=== PATIENT | female | born 1940 | race Caucasian/White ===

== ENCOUNTER 2024-08-29 12:18 | Outpatient (OUT) | payer MEDICARE, SELFPAY ==
--- OUTSIDE RECORDS SUMMARY | 2024-08-29 12:32 | XMS_ITS | Encounter Summary ---
Author Organization [facility] Address [id number] [address] [place] [address] Care Team Providers Care Recorder Gravity Prospecting Name Role Phone TheresaCaity jimenez Moy CROOK Primary Care Provider [phone] Encounter Details Date Type Department Care Team (Late st Contact Info) Description 02/02/2023 Documentation [facility] [address] [place] [phone] Hannah Vargas PA [address] [place] [address] Social History Tobacco Use Types Packs/Day Years Used Date Smoking Tobacco: Former Cigarettes Q uit: 10/31/2022 Smokeless Tobacco: Never Alcohol Use Standard Drinks/Week Comments Yes 0 (1 standard drink = 0.6 oz pur e alcohol) socially AUDIT-C Answer Date Recorded Q1: How often do you have a drink containing alc ohol? 2-4 times a month 12/19/2022 Q2: How many drinks containi ng alcohol do you have on a typical day when you are drinking? 1 or 2 12/19/2022 Q3: How often do you have si x or more drinks on one occasion? Never 12/19/2022 PHQ-2 Answer Date Recorded Total Score 0 12/19/2022 Comments Unknown Sex and Gender Information Value Date Recorded Sex Assigned at Not on file Legal Sex Female 3:22 PM EDT Gender Identity Not on file Sexual Orientation Not on file documented as of this encounter Plan of Treatment Not on file documented as of this encounter Visit Diagnoses Not on filedocumented in this encounter Additional Health Concerns Assessment Noted Time PHQ-9 Depression Total Score: 0 12/20/19 11:40 AM EDT documented as of this encounter Care Teams Recorder Gravity Prospecting Relationship Specialty Start Date End Date Caity Cardenas DO PCP - General Family Medicine 12/18/22 documented as of this encounter
--- OUTSIDE RECORDS SUMMARY | 2024-08-29 12:32 | XMS_ITS | Clinical Summary ---
Author Organization [facility] Address [address] [place] [address] Care Team Providers Care Air Conditioning Coil Assembler Name Role Phone Sherlyn London DO Unavailable [phone] Caity Cardenas MD Primary Care Provider [phone] Allergies No known active allergies Medications atorvastatin (Lipitor) 10 MG tablet 08/17/19 23 Active denosumab (Prolia) 60 MG/ML solution prefilled syringe Inject 60 mg under the skin 1 (one) time Active Multiple Vitamins-Webster als (PRESERVISION AREDS 2 PO) Active cholecalcifero l (Vitamin D-3) 50 MCG (1999 UT) capsule Active cyanocobalamin (Vitamin B-12) 50 MCG tablet Take 50 mcg by mouth in the morning. Active acetaminophen (Tylenol) 325 MG tablet Take 650 mg by mouth every 4 (four) hours if needed 12/26/19 23 Active gabapentin (Neurontin) 100 MG capsule 07/05/19 24 Active losartan (Cozaar) 25 MG tablet Take 25 mg by mouth 02/20/20 24 Active ipratropium (Atrovent) 0.06 % nasal spray Administer into affected nostril(s) 11/08/19 24 Active ASPIRIN 81 PO Active donepezil (Aricept) 5 MG tabletIndicati ons:Mild cognitive impairment TAKE 1 TABLET(5 MG) BY MOUTH AT BEDTIME 90 tablet 08/12/19 25 Active Calcium Carb-Cholecalc iferol (CALCIUM PLUS VITAMIN D3 PO) Take by mouth A ctive escitalopram (Lexapro) 20 MG tabletIndicati ons:Depression , unspecified depression type (CMS/HCC),Anxi ety Take 1 tablet (20 mg) by mouth Daily 90 tablet 1 08/21/19 25 Active donepezil (Aricept) 5 MG tabletIndicati ons:Mild cognitive impairment Take 1 tablet (5 mg) by mouth at bedtime 90 tablet 03/13/20 24 025 Discontinued sertraline (Zoloft) 50 MG tabletIndicati ons:Depression , unspecified depression type (CMS/HCC) Take 1 tablet (50 mg) by mouth Daily Take this for 7 days (in addition to the lexapro) 7 tablet 07/09/19 25 025 Discontinued( erapy completed) escitalopram (Lexapro) 10 MG tabletIndicati ons:Depression , unspecified depression type (CMS/HCC) Take 1 tablet (10 mg) by mouth Daily 7 tablet 07/09/19 25 025 Discontinued( erapy completed) escitalopram (Lexapro) 20 MG tabletIndicati ons:Depression , unspecified depression type (CMS/HCC) Take 1 tablet (20 mg) by mouth Daily (To start after completing the 10mg) 30 tablet 2 07/09/19 25 025 Discontinued(Re order) Active Problems Problem Noted Date Diagnosed Date 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 07/30 Post-traumatic osteoarthritis, left wrist 2024 Pulmonary nodule 07/30/2024 Mild cognitive impairment with memory loss 05/10 Chronic pain syndrome 05/10/2023 Anxiety, generalized 05/10/2023 Memory change 05/01/2023 Depression 05/01/2023 Aortic valve endocarditis 03/19/2023 Aortic valve mass 02/13/2023 Right homonymous hemianopsia 12/27/2022 Stroke 12/19/2022 Localized primary osteoarthritis of left wrist 0 11/02/2022 Left carpal tunnel syndrome 11/01/2022 Early dry stage nonexudative age-related macular degeneration of both eyes 10/30/2022 Glaucoma suspect of both eyes 10/30/2022 Dry eyes 10/30/2022 Blepharitis of upper and lower eyelids of both e yes 10/30/2022 Paresthesia and pain of extremity 10/25/2022 Acquired hallux valgus 03/01/2009 Encounters Date Type Department Care Team Description 08/20/2024 1:00 PM EDT Office Visit [facility] [address] [place] [address] Alesha Almazan PA Cerebrovascular accident (CVA) due to other mechanism (Primary Dx); Mild cognitive impairment with memory loss; Depression, unspecified depression type (CMS/HCC); Anxiety 08/20/2024 Telephone [facility] [address] [place] [address] Dafne Gibbons MA Schedule Appt 08/20/2024 Bamboo flowsheet [facility] [address] [place] [address] Alesha Almazan PA 08/11/2024 Refill [facility] [address] [facility] [address] [place] [address] Alesha Almazan PA Mild cognitive impairment 08/01/2024 8:40 AM EDT Office Visit [facility] [address] [place] [address] Liz Owens MD Vasomotor rhinitis (Primary Dx); Left ear impacted cerumen 08/01/2024 Bamboo flowsheet [facility] [address] [place] [address] Liz Owens MD 08/01/2024 Travel 07/11/2024 8:45 AM EDT Office Visit [facility] [address] [place] [phone] Edwardo Cueto, Localized primary osteoarthritis of left wrist (Primary Dx) 07/11/2024 Bamboo flowsheet [facility] [address] [facility] [facility] [address] [place] [phone] Edwardo Cueto, 07/11/2024 Travel 07/08/2024 11:20 AM EDT Office Visit [facility] [address] [place] [phone] Alesha Almazan PA Mild cognitive impairment with memory loss (Primary Dx); Cerebrovascular accident (CVA) due to other mechanism; Depression, unspecified depression type (CMS/HCC) 07/08/2024 Bamboo flowsheet [facility] [address] [address] Alesha Almazan PA 07/04/2024 Travel 06/03/2024 2:00 PM EST Office Visit [facility] [address] [place] [phone] Prince Maciel, PhD Mild neurocognitive disorder (Primary Dx); Cerebrovascular accident (CVA) due to other mechanism (CMS/HCC) ; Bilateral sciatica; Other insomnia; Major depressive disorder, recurrent, mild (HCC) (CMS/HCC) ; Mild anxiety 06/03/2024 ExactCostboo flowsheet [facility] [address] [address] Prince Maciel, PhD from Last 3 Months Immunizations Immunization Administration Dates Next Due ABRYSVO - Respiratory syncyt ial virus (RSV), vaccine, bivalent, protein subunit RSV prefusion F, diluent reconstituted, 0.5 mL, PF 03/20/2024 Influenza, High Dose Seasona l, Preservative Free 01/11/2024,01/04/2021,12/29/2019,01/27 Influenza, High-dose Seasona l, Quadrivalent, Preservative Free 01/04/2023,01/23/2022 Pneumococcal Conjugate PCV 13 10/19/2017 Pneumococcal Polysaccharide PPSV23 01/04/2021 Zoster, live 11/04/2012 Family History Medical History Relation Name Comments Multiple sclerosis Daughter 3 Hearing deficiency Father Alzheimer's disease Mother Ellie Osteoporosis Mother Ellie Stroke Mother Ellie Rectal cancer Sister 4 Relation Name Status Comments Brother 4 Daughter 3 Alive Father Mother Ellie Sister 4 Social History Tobacco Use Types Packs/Day Years Used Date Smoking Tobacco: Every Day Cigarettes Smokeless Tobacco: Never Alcohol Use Standard Drinks/Week Comments Not Currently 1 (1 standard drink = 0.6 oz pur e alcohol) Comments Unknown Sex and Gender Information Value Date Recorded Sex Assigned at Female 10/01/2022 6:58 AM EDT Legal Sex Female 8:35 PM EDT Gender Identity Female 10/01/2022 6:58 AM EDT Sexual Orientation Choose not to disclose 2022 6:58 AM EDT Last Filed Vital Signs Vital Sign Reading Time Taken Comments Blood Pressure 102/74 08/20/2024 12:57 PM EDT Pulse 66 08/20/2024 12:57 PM EDT Temperature 36.3 C (97.4 F) 05/10/2023 10:08 AM EST Respiratory Rate 16 08/20/2024 12:57 PM EDT Oxygen Saturation 99% 08/20/2024 12:57 PM EDT Inhaled Oxygen Concentration - - Weight 54.4 kg (120 lb) 08/20/2024 12:57 PM EDT Height 157.5 cm (5' 2 ) 08/20/2024 12:57 PM EDT Body Mass Index 21.95 08/20/2024 12:57 PM EDT Plan of Treatment Upcoming Encounters Date Type Department Care Team (Late st Contact Info) Description 09/03/2024 1:00 PM EDT Office Visit [facility] [address] [place] [address] Magda Cao DPM [address] [place] [address] 11/10/2024 9:30 AM EDT Office Visit [facility] [address] [place] [address] Brian Rajan MD [address] [facility] [address] [place] [address] 11/19/2024 9:15 AM EDT Office Visit [facility] [address] [place] [address] Jack Correa DO [address] [place] [address] Health Maintenance Due Date Last Done Comments Pneumococcal Vaccine: 65+ Years Completed , 10/19/2017 Influenza Vaccine Completed 01/11/2024, , 01/23/2022, Additional history exists Procedures Procedure Name Priority Date/Time Associated Diagnosis Comments NEUROPSYCHOLOGICAL TESTING Routine 07/29/2024 9:04 AM EDT Mild neurocognitive disorder ME ARTHROCENTESIS ASPIR&/INJ INTERM JT/BURS W/US Routine 07/11/2024 8:37 AM EDT Localized primary osteoarthritis of left wrist from Last 3 Months Results * Neuropsychological testing (07/29/2024 9:04 AM EDT) Kendrick Blevins DO - 07/29/2024 9:[address] Wheeler report. us Tiffanie VELEZ NEUROLOGY ORDERABLES Final Resul t * ME ARTHROCENTESIS ASPIR&/INJ INTERM JT/BURS W/US (07/11/2024 8:37 AM EDT) Narrative Alma Rosa Cao MA - 07/11/2024 8:37 AM EDT Alma Rosa Cao MA 07/14/2024 9:46 AM M Inj/Asp: L radiocarpal on 07/11/2024 8:37 AM Indications: diagnostic evaluation Details: 25 G needle, ultrasound-guided Medications: 6 mg betamethasone acetate-betamethasone sodium phosphate 6 (3-3) MG/ML Outcome: tolerated well, no immediate complications Consent was given by the patient. us Edwardo Cueto DO IN CLINIC/BEDSIDE ORDERABLES Final Result from Last 3 Months Insurance [employer] MEDICARE Care Teams Air Conditioning Coil Assembler Relationship Specialty Start Date End Date Caity Cardenas MD [address] [place] [address] PCP - General Family Medicine 08/28/24 Sherlyn London DO [address] [place] [address] Referring Physician Neurology 07/12/23
--- OUTSIDE RECORDS SUMMARY | 2024-08-29 12:32 | XMS_ITS | Encounter Summary ---
Author Organization [facility] Address [address] [facility] [place] [address] Care Team Providers Care Flight Dynamicist Name Role Phone Caity Cardenas MD Primary Care Provider Sherlyn London DO Unavailable [phone] Encounter Details Date Type Department Care Team (Late st Contact Info) Description 08/20/2024 BamBaila Gameso flowsheet [facility] [address] [place] [phone] Alesha Almazan PA [address] [place] [address] Social History Tobacco Use Types Packs/Day Years [...] not to disclose 2022 6:58 AM EDT documented as of this encounter Plan of Treatment Upcoming Encounters Date Type Department Care Team (Late st Contact Info) Description 09/03/2024 1:00 PM EDT Office Visit [facility] [address] [place] [phone] Magda Cao, DPM [address] [place] [address] 11/10/2024 9:30 AM EDT Office Visit [facility] [address] [place] [address] Brian Rajan MD [address] [facility] [address] [place] [id number] 11/19/2024 9:15 AM EDT Office Visit [facility] [address] [place] [address] Jack Correa DO [address] [place] [address] documented as of this encounter Visit Diagnoses Not on filedocumented in this encounter Care Teams Flight Dynamicist Relationship Specialty Start Date End Date Caity Cardenas MD PCP - General Family Medicine 10/06/22 08/27/24 Sherlyn London DO [address] [place] [phone] Referring Physician Neurology 07/12/23 documented as of this encounter
--- OUTSIDE RECORDS SUMMARY | 2024-08-29 12:32 | XMS_ITS | Encounter Summary ---
Author Organization [facility] Address [address] [facility] [place] [address] Care Team Providers Care Director Of Product Management Name Role Phone Caity Cardenas MD Primary Care Provider [phone] Sherlyn London DO Unavailable [phone] Reason for Visit * Reason Onset Date Comments Schedule Appt 08/20/2024 Encounter Details Date Type Department Care Team (Late st Contact Info) Description 08/20/2024 Telephone [facility] [address] [facility] [address] [place] [phone] Dafne Gibbons MA Schedule Appt Social History Tobacco Use Types Packs/Day Years [...] AM EDT documented as of this encounter Miscellaneous Notes * Telephone Encounter - Diane Boucher - 08/21/2024 11:14 AM EDT Done: Scheduled 09/03 at 1PM. In pain. * Telephone Encounter - Dafne Gibbons MA - 08/21/2024 9:49 AM EDT Patient called and LVM returning Diane's call to schedule an appointment. Please return call to patient to schedule an appointment. Thank you very much! * Telephone Encounter - Diane Boucher - 08/20/2024 1:58 PM EDT Called PT and LM to call us to make appt with Dr Cao. * Telephone Encounter - Dafne Gibbons MA - 08/20/2024 1:14 PM EDT Patient called regarding pain in the left foot. She stated that she is having pain on the bottom ofthe left 4th toe and she thinks that it might be a neuroma. She would like to make an appointment with Dr. Cao. Please call patient to schedule an appointment with Dr. Cao, thank you. documented in this encounter Plan of Treatment Upcoming Encounters Date Type Department Care Team (Late st Contact Info) Description 09/03/2024 1:00 PM EDT Office Visit [facility] [address] [place] [address] Magda Cao DPM [address] [place] [address] 11/10/2024 9:30 AM EDT Office Visit [facility] [address] [place] [address] Brian Rajan MD [address] [facility] [address] [place] [address] 11/19/2024 9:15 AM EDT Office Visit [facility] [address] [place] [address] Jack Correa DO [address] [place] [address] documented as of this encounter Visit Diagnoses Not on filedocumented in this encounter Care Teams Director Of Product Management Relationship Specialty Start Date End Date Caity Cardenas MD PCP - General Family Medicine 10/06/22 08/27/24 Sherlyn London DO [address] [place] [address] Referring Physician Neurology 07/12/23 documented as of this encounter
--- OUTSIDE RECORDS SUMMARY | 2024-08-29 12:32 | XMS_ITS | Encounter Summary ---
Author Organization [facility] Address [id number] [address] [place] [address] Care Team Providers Care Top Lift And Automatic Window Repairer Name Role Phone Caity Cardenas DO Primary Care Provider [phone] Encounter Details Date Type Department Care Team (Late st Contact Info) Description 12/22/2022 Telephone [facility] [address] [address] Niki Cruz, PRINCIPAL STATISTICAL SCIENTIST-ACCREDITED PHARMACY TECHNICIAN [address] [address] Social History Tobacco Use Types Packs/Day Years Used Date Smoking Tobacco: Some Days Cigarettes Smokeless Tobacco: Never Alcohol Use Standard [...] on file documented as of this encounter Miscellaneous Notes * Telephone Encounter - KHOA Dexter - 12/22/2022 8:[address] chest in 3 months then follow up in [place]. May choose to follow up in [place] instead.ThankS! * Telephone Encounter - Nubia Humphrey RN - 12/22/2022 8:50 AM EDT LM for pt to call office re HDFU * Telephone Encounter - Nubia Humphrey RN - 12/22/2022 8:50 AM EDT Spoke with pt - states she would prefer to follow up in [place]. Pt has appt with PCP next week, will discuss then documented in this encounter Plan of Treatment Not on file documented as of this encounter Visit Diagnoses Not on filedocumented in this encounter Additional Health Concerns Assessment Noted Time PHQ-9 Depression Total Score: 0 12/20/19 23 11:40 AM EDT documented as of this encounter Care Teams Top Lift And Automatic Window Repairer Relationship Specialty Start Date End Date Caity Cardenas DO PCP - General Family Medicine 12/18/22 documented as of this encounter
--- OUTSIDE RECORDS SUMMARY | 2024-08-29 12:32 | XMS_ITS | Clinical Summary ---
Author Organization [facility] Address [address] [place] [address] Care Team Providers Care Inventory Control Coordinator Name Role Phone Keaton Almanza MD Primary Care Provider Allergies No known active allergies Medications calcium carbonate/vitami n d3(CALCIUM 600 + D(3) 600 MG-400 UNIT TAB) 2 daily 0 03/01/2009 Ac tive CHOLECALCIFEROL (VITAMIN D3) 1,000 UNIT TAB one daily 0 03/01/2009 Acti ve MULTIVITAMIN TAB Take one(1) tablet daily. 0 03/01/2009 Active omega-3 fatty acids/vitamin e(FISH OIL 1,000 MG CAP) one daily 0 03/01/2009 Active Active Problems Problem Noted Date Diagnosed Date Hallux valgus (acquired) 03/01/2009 Social History Tobacco Use Types Packs/Day Years Used Date Smoking Tobacco: Never Assessed Area Deprivation Index Answer Date [place]if[place] rded National Score (1-100), lower number is lower ri sk Not on file 03/09/2020 State Score (1-10), lower number is lower risk N ot on file 03/09/2020 Data from: https://www.neighborhoodatlas.medicine.[facility].edu/. Last address used for calculation Not on file 03/09/2020 Comments Unknown Sex and Gender Information Value Date Recorded Sex Assigned at Not on file Legal Sex Female 9:11 AM EST Gender Identity Not on file Sexual Orientation Not on file Plan of Treatment Health Maintenance Due Date Last Done Comments Anxiety Screening 01/01/1960 Depression Screening 01/01/1960 DTaP,Tdap,Td Vaccine (1 - Tdap) 1960 Diabetes Screening 1986 Pneumococcal Vaccine: 50+ (1 of 1 - PCV) 01/01/1992 Shingrix Vaccine (1 of 2) 01/01/1992 Bone Density Screening 2006 RSV Vaccine (1 - 1-dose 75+ series) 2016 Covid-19 Vaccine (1 - season) 2023 Advance Directive Discussion 04/02/2024 Influenza Vaccine (Season Ended) 2024 Insurance MEDICARE Member Subscriber Plan / Payer (Ef fective 2007-Present) Name:Adriana Ly A Member ID:[id number] Relation to Subscriber:Self Name:AdrianaLy Subscriber ID:[id number] Payer ID:Not on file Group ID:Not on file Type:Medicare Address: [place] [id number] [address] Care Teams Inventory Control Coordinator Relationship Specialty Start Date End Date Keaton Almanza MD [address] [place] [address] PCP - General 02/15/09
--- OUTSIDE RECORDS SUMMARY | 2024-08-29 12:32 | XMS_ITS | Encounter Summary ---
Author Organization [facility] Address [id number] [address] [place] [address] Care Team Providers Care Medical Staffing Coordinator Name Role Phone Caity Cardenas DO Primary Care Provider [phone] Encounter Details Date Type Department Care Team (Late st Contact Info) Description 04/12/2023 Orders Only [facility] [place] [facility] [place] [address] [place] [address] Ref Prov, [place] [address] Social History Tobacco Use Types Packs/Day Years Used Date Smoking Tobacco: Former Cigarettes Q uit: 10/31/2022 Smokeless Tobacco: Never Alcohol Use Standard Drinks/Week Comments Yes 0 (1 standard drink = 0.6 oz pur e alcohol) socially AUDIT-C Answer Date Recorded Q1: How often do you have a drink containing alc ohol? 2-4 times a month 03/19/2023 Q2: How many drinks containi ng alcohol do you have on a typical day when you are drinking? 1 or 2 03/19/2023 Q3: How often do you have si x or more drinks on one occasion? Never 03/19/2023 PHQ-2 Answer Date Recorded Total Score 0 03/19/2023 Housing Instability Answer Date Recorde d Are you worried or concerned that in the next two months you may not have stable housing that you own, rent or stay in as a part of a household? No 03/25/2023 Hunger Screening Answer Date Recorded Within the past 12 months we worried whether our food would run out before we got money to buy more. Never True 03/25/2023 Within the past 12 months th e food we bought just didn't last and we didn't have money to get more. Never True 03/25/2023 Comments No Sex and Gender Information Value Date Recorded Sex Assigned at Not on file Legal Sex Female 3:22 PM EDT Gender Identity Not on file Sexual Orientation Not on file documented as of this encounter Plan of Treatment Not on file documented as of this encounter Goals Goal Patient Goal Type Associated Problems Recent Progress Patient-Stated? Author <enter goal here> General Yes Sherlyn Carlson LSW Note: Evaluation of progress towards goal: plan home with homecare and significant other support documented as of this encounter Procedures Procedure Name Priority Date/Time Associated Diagnosis Comments XR CHEST 2 VWS Routine 04/12/2023 8:11 AM EST documented in this encounter Results * X-ray chest 2 views (04/12/2023 8:11 AM EST) Anatomical Region Laterality Modality Body, Chest N/A Computed Radiogr aphy us Not In System Ref Prov IMG DIAGNOSTIC IMAGING OR DERABLES Final Result documented in this encounter Visit Diagnoses Not on filedocumented in this encounter Additional Health Concerns Assessment Noted Time PHQ-9 Depression Total Score: 0 03/19/20 7:54 PM EST documented as of this encounter Care Teams Medical Staffing Coordinator Relationship Specialty Start Date End Date Caity Cardenas DO PCP - General Family Medicine 12/18/22 documented as of this encounter
--- OUTSIDE RECORDS SUMMARY | 2024-08-29 12:32 | XMS_ITS | Clinical Summary ---
Author Organization [facility] Address [address] [place] [address] Phone Care Team Providers Care Baker Pastry Name Role Phone Caity Cardenas DO Primary Care Provider [phone] Social History Tobacco Use Types Packs/Day Years Used Date Smoking Tobacco: Never Assessed Comments Unknown Sex and Gender Information Value Date Recorded Sex Assigned at Not on file Legal Sex Female 11:37 AM EST Gender Identity Not on file Sexual Orientation Not on file Last Filed Vital Signs Vital Sign Reading Time Taken Comments Blood Pressure - - Pulse - - Temperature - - Respiratory Rate - - Oxygen Saturation - - Inhaled Oxygen Concentration - - Weight 49.9 kg (110 lb) 08/03/2021 3:57 PM EDT Height 157.5 cm (5' 2 ) 08/03/2021 3:57 PM EDT Body Mass Index 20.12 08/03/2021 3:57 PM EDT Plan of Treatment Health Maintenance Due Date Last Done Comments Bone Density Scan 1940 Lipid Panel 1940 Yearly Adult Physical 1940 DTaP/Tdap/Td Vaccines (1 - Tdap) 01/01/1964 Pneumococcal Vaccine (1 of 1 - PCV) 01/01/1992 Zoster Vaccines (1 of 2) 01/01/1992 RSV High Risk: (Elderly (60+ ) or Population) (1 - 1-dose 75+ series) 2016 COVID-19 Vaccine ( - 2023-2 5 season) 2023 Influenza Vaccine (Season Ended) 2024 HIB Vaccines Aged Out No longer eligi ble based on patient's age to complete this topic HPV Vaccines Aged Out No longer eligi ble based on patient's age to complete this topic Hepatitis A Vaccines Aged Out No long er eligible based on patient's age to complete this topic Hepatitis B Vaccines Aged Out No long er eligible based on patient's age to complete this topic IPV Vaccines Aged Out No longer eligi ble based on patient's age to complete this topic Meningococcal Vaccine Aged Out No oleg miladis eligible based on patient's age to complete this topic Rotavirus Vaccines Aged Out No longer eligible based on patient's age to complete this topic Care Teams Baker Pastry Relationship Specialty Start Date End Date Caity Cardenas DO [address] [place] [address] PCP - General 07/01/21
--- OUTSIDE RECORDS SUMMARY | 2024-08-29 12:32 | XMS_ITS | Encounter Summary ---
Author Organization [facility] [employer] Sys tem Address [facility]-[id number] [address] [place] [address] Care Team Providers Care Navigating Officer Name Role Phone TheresaCaity jimenez Moy CROOK Primary Care Provider [phone] Reason for Visit * Reason Onset Date Comments Care Navigation 02/02/2023 Encounter Details Date Type Department Care Team (Late st Contact Info) Description 02/02/2023 [facility] [address] [place] [address] Mary Maldonado, RN Care Navigation Social History Tobacco Use Types Packs/Day Years [...] encounter Miscellaneous Notes * Telephone Encounter - Mary Maldonado RN - 02/02/2023 2:37 PM EDT Contact Type: Direct contact - Phone call with patient - general Reason for Call: CN introduction. Assessment- 81 y.o. White or female with history of parathyroid disease, glaucoma, and occasional cigarette use who presented to [facility] on 12/17/22 with right visual field changes. She did receive thrombolytics and was admitted locally. [facility]. Due to this finding patient was transferred to [facility] ICU. Imaging was personally reviewed by our team- and patient does not have any subdural hematoma or intracranial hemorrhage. 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 Patient was able to be transferred out of ICU. Today patient reports that her vision is very well. She notes that she needs sunglasses more than before. She is driving fine. Her INR today was 2.4. She is now getting monthly draws. She is taking her coumadin. She is done with the lovenox. No excessive bruising or bleeding. She is outside working. She sees cardiac thoracic surgery a week from this Tu to discuss surgery. Neuro is on 03/08/2023. 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 Date of Hospitalization: 12/18/2022-12/25/2022. New Medications: Tylenol, Augmentin, ASA, singulair, coumadin, lovenox. Medication Issues: none. Anticoagulation: ASA and coumadin. Lovenox is done. Labs: monthly PT/INR now Testing: none. Equipment: none. Home Care: none Outpatient Therapy: OT-driving evaluation Driving: yes without problems Follow Up Appointments: neuro 03/08/2023. CT 02/03/2023 Plan/Goals: continue taking medications as ordered, keep follow up appts Intervention: CN called patient and received an update Questions: none documented in this encounter Plan of Treatment Not on file documented as of this encounter Visit Diagnoses Not on filedocumented in this encounter Additional Health Concerns Assessment Noted Time PHQ-9 Depression Total Score: 0 09/19/20 23 11:40 AM EDT documented as of this encounter Care Teams Navigating Officer Relationship Specialty Start Date End Date Caity Cardenas DO PCP - General Family Medicine 12/18/22 documented as of this encounter
--- OUTSIDE RECORDS SUMMARY | 2024-08-29 12:32 | XMS_ITS | Encounter Summary ---
Author Organization [facility] Address [facility]-[id number] [address] [place] [address] Care Team Providers Care Drum Sander Name Role Phone TheresaCaity jimenez Moy DO Primary Care Provider [phone] Encounter Details Date Type Department Care Team (Late st Contact Info) Description 12/17/2022 Orders Only [facility] [address] [place] [id number] Transcribe, Orders Support User Pain (Primary Dx) Social History Tobacco Use Types Packs/Day Years Used Date Smoking Tobacco: Never Assessed AUDIT-C Answer Date Recorded Q1: How often [...] on file documented as of this encounter Functional Status * Audit-C Score Answer Date of Assessment Author 2 12/19/2022 11:46 AM EDT Al Riso RN * Question Answer Date of Assessment Author Q1: How often do you have a drink containing alcohol? 2-4 times a month 12/19/2022 11:46 AM EDT Al Rios RN Q2: How many drinks containing alcohol do you have on a typical day when you are drinking? 1 or 2 12/19/2022 11:46 AM EDT Al Rios RN Q3: How often do you have six or more drinks on one occasion? Never 12/19/2022 11:46 AM EDT Al Rios RN * Question Answer Date of Assessment Author Functional Status Independent 12/19/2022 11:35 AM EDT Al Rios RN documented as of this encounter Mental Status * Question Answer Entry Date Author Overall Cognitive Status WFL 12/19/2022 11:01 AM EDT Shanta Mills PT * Question Answer Entry Date Author Overall Cognitive Status X 12/19/2022 8:39 AM EDT Keisha Olivarez, Student Speech Therapy documented in this encounter Plan of Treatment Not on file documented as of this encounter Results * CT angiogram carotid (12/17/2022 3:45 PM EDT) us Scanning Provider External IMG CT ORDERABLES Fin al Result MANUALLY TRANSCRIBED RESULTS * CT angiogram head (12/17/2022 3:40 PM EDT) us Scanning Provider External IMG CT ORDERABLES Fin al Result * CT brain without contrast (12/17/2022 2:50 PM EDT) us Scanning Provider External IMG CT ORDERABLES Fin al Result * X-ray chest 2 views (12/15/2022 12:15 PM EDT) us Scanning Provider External IMG DIAGNOSTIC IMAGIN G ORDERABLES Final Result documented in this encounter Visit Diagnoses Diagnosis Pain- Primary Generalized pain documented in this encounter Care Teams Drum Sander Relationship Specialty Start Date End Date Caity Cardenas DO PCP - General Family Medicine 12/18/22 documented as of this encounter
--- OUTSIDE RECORDS SUMMARY | 2024-08-29 12:32 | XMS_ITS | Encounter Summary ---
Author Organization [email or web address] Sys [facility] Address [facility]-[id number] [address] [place] [address] Care Team Providers Care Side Door Man Name Role Phone TheresaCaity jimenez Moy DO Primary Care Provider [phone] Encounter Details Date Type Department Care Team (Late st Contact Info) Description 12/18/2022 Orders Only [facility] [address] [place] [phone] Transcribe, Orders Support User Pain (Primary [...] Author 2 12/19/2022 11:46 AM EDT Al Rios [...] Status WFL 12/19/2022 11:01 AM EDT Shanta Mills, PT * Question Answer Entry Date Author Overall Cognitive Status X 12/19/2022 8:39 AM EDT Keisha Olivarez, Student Speech Therapy documented in this encounter Plan of Treatment Not on file documented as of this encounter Results * MR brain without contrast (12/18/2022 4:40 PM EDT) us Scanning Provider External IMG MRI ORDERABLES Fi nal Result * X-ray chest 1 view (12/17/2022 4:25 PM EDT) us Scanning Provider External IMG DIAGNOSTIC IMAGIN G ORDERABLES Final Result documented in this encounter Visit Diagnoses Diagnosis Pain- Primary Generalized pain documented in this encounter Care Teams Side Door Man Relationship Specialty Start Date End Date Caity Cardenas DO PCP - General Family Medicine 12/18/22 documented as of this encounter
--- OUTSIDE RECORDS SUMMARY | 2024-08-29 12:32 | XMS_ITS | Encounter Summary ---
Author Organization [facility] Address [address] [place] [address] Phone Care Team Providers Care Group Dynamics Instructor Name Role Phone Caity Cardenas DO Primary Care Provider [phone] Encounter Details Date Type Department Care Team (Late st Contact Info) Description 08/08/2021 Orders Only [facility] [address] [place] [address] Conversion, Onbase Social History Tobacco Use Types Packs/Day Years Used Date Smoking Tobacco: Never Assessed Comments Unknown Sex and Gender Information Value Date Recorded Sex Assigned at Not on file Legal Sex Female 11:37 AM EST Gender Identity Not on file Sexual Orientation Not on file documented as of this encounter Plan of Treatment Scheduled Orders Name Type Priority Associated Diagnoses Orde r Schedule OUTSIDE LAB SCAN Lab Ordered: 08/08/2021 documented as of this encounter Visit Diagnoses Not on filedocumented in this encounter Care Teams Group Dynamics Instructor Relationship Specialty Start Date End Date Caity Cardenas DO [address] [place] [address] PCP - General 07/01/21 documented as of this encounter
--- OUTSIDE RECORDS SUMMARY | 2024-08-29 12:33 | XMS_ITS | Clinical Summary ---
Author Organization [employer] [facility] Address [facility]-[id number] [address] [place] [address] Care Team Providers Care Technology Auditor Name Role Phone Caity Cardenas DO Primary Care Provider [phone] Allergies No known active allergies Medications pyridoxine HCl, vitamin B6, (VITAMIN B-6 ORAL) Take 100 mg by mouth in the morning. 12/07/2022 Active atorvastatin (LIPITOR) 10 mg tablet Take 1 tablet (10 mg total) by mouth in the morning. 08/16/2022 Active cholecalciferol , vitamin D3, 2,000 units capsule Take 1 capsule (2,000 Units total) by mouth in the morning. Active sertraline (ZOLOFT) 25 mg tablet Take 2 tablets (50 mg total) by mouth in the morning. Active mv-min/FA/vit K/lutein/zeaxan t (PRESERVISION AREDS 2 PLUS MV ORAL) Take 1 tablet by mouth in the morning. Active cyanocobalamin (vitamin B-12) 50 mcg tablet Take 1 tablet (50 mcg total) by mouth in the morning. Active acetaminophen (TYLENOL EXTRA STRENGTH) 500 mg tablet Take 2 tablets (1,000 mg total) by mouth every 6 (six) hours. 30 tablet 03/24/2023 Active metoprolol tartrate (LOPRESSOR) 25 mg tablet Take 1 tablet (25 mg total) by mouth every 12 (twelve) hours. 30 tablet 03/24/2023 Active colchicine (COLCRYS) 0.6 mg tablet Take 1 tablet (0.6 mg total) by mouth in the morning. 30 tablet 03/25/2023 Active famotidine (PEPCID) 20 mg tablet Take 1 tablet (20 mg total) by mouth in the morning. 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 Stroke 12/18/2022 Immunizations Immunization Administration Dates Next Due Influenza High Dose Preservative Free IM 021,12/29/2019,01/27/2019 Influenza, High-dose, Quadrivalent 01/04/2023, Pneumococcal Conjugate 13-Valent 10/19/2017 Pneumococcal Polysaccharide 01/04/2021 Zoster Live 11/04/2012 Social History Tobacco Use Types Packs/Day Years Used Date Smoking Tobacco: Former Cigarettes Q uit: 10/31/2022 Smokeless Tobacco: Never Tobacco Cessation:Counseling Given: Not Answered Alcohol Use Standard Drinks/Week Comments Yes 0 [...] Sign Reading Time Taken Comments Blood Pressure 142/80 04/03/2023 1:12 PM EST Pulse 83 04/03/2023 1:12 PM EST Temperature 36.3 C (97.3 F) 04/03/2023 1:12 PM EST Respiratory Rate 18 04/03/2023 1:12 PM EST Oxygen Saturation 97% 04/03/2023 1:12 PM EST Inhaled Oxygen Concentration - - Weight 49.9 kg (110 lb) 04/03/2023 1:12 PM EST Height 157.5 cm (5' 2 ) 03/19/2023 7:53 PM EST Body Mass Index 20.12 03/19/2023 7:53 PM EST Plan of Treatment Health Maintenance Due Date Last Done Comments DTaP,Tdap and Td Vaccines (1 - Tdap) 1959 Fall Risk Screening 2006 Zoster (Shingles) Vaccine (2 of 3) 12/30/2012 11/04/2012 Depression Screening 03/19/2024 03/19/2023 Tobacco Screening 04/03/2024 04/03/2023 COVID-19 Vaccine (7 2023-2 5 season) 2024 02/05/2024, 04/23/2023, 12/30/2021, Additional history exists Influenza Vaccine 12/01/2024 01/11/2024, , 01/23/2022, Additional history exists Goals Goal Patient Goal Type Associated Problems Recent Progress Patient-Stated? Author <enter goal here> General Yes Sherlyn Carlson LSW Note: Evaluation of progress towards goal: plan home with homecare and significant other support Medical Devices Not on file Insurance [employer] [place] [employer] Advance Directives * Full Code (Latest Code Status on File) Date Activated Date Inactivated Comments 03/19/2023 11:02 AM 03/25/2023 3:39 PM * Full Code Date Activated Date Inactivated Comments 12/18/2022 8:05 PM 12/25/2022 7:47 PM Care Teams Technology Auditor Relationship Specialty Start Date End Date Caity Cardenas DO PCP - General Family Medicine 12/18/22
--- OUTSIDE RECORDS SUMMARY | 2024-08-29 12:33 | XMS_ITS | Encounter Summary ---
Author Organization [facility] Sys tem Address [id number] [address] [place] [address] Care Team Providers Care Fine Arts Packer Name Role Phone Caity Cardenas DO Primary Care Provider [phone] Encounter Details Date Type Department Care Team (Late st Contact Info) Description 03/07/2023 Orders Only [facility] [address] [place] [address] External, Scanning Provider Social History Tobacco Use Types Packs/Day Years [...] Answer Date Recorded Total Score 0 12/19/2022 Hunger Screening Answer Date Recorded Within the past 12 months we worried whether our food would run out before we got money to buy more. Never True 02/13/2023 Within the past 12 months th e food we bought just didn't last and we didn't have money to get more. Never True 02/13/2023 Comments No Sex and Gender Information Value Date Recorded Sex Assigned at Not on file Legal Sex Female 3:22 PM EDT Gender Identity Not on file Sexual Orientation Not on file documented as of this encounter Plan of Treatment Not on file documented as of this encounter Procedures Procedure Name Priority Date/Time Associated Diagnosis Comments MULTIPLE LABS Routine 03/06/2023 10:12 AM EST MULTIPLE LABS Routine 03/01/2023 10:11 AM EST documented in this encounter Results * Multiple labs (03/06/2023 10:12 AM EST) us Scanning Provider External ND IMAGING Final Result Performing Organization Address [facility] Co de Phone Number MANUALLY TRANSCRIBED RESULTS * Multiple labs (03/01/2023 10:11 AM EST) us Scanning Provider External ND IMAGING Final Result Performing Organization Address [facility] Co de Phone Number MANUALLY TRANSCRIBED RESULTS documented in this encounter Visit Diagnoses Not on filedocumented in this encounter Additional Health Concerns Assessment Noted Time PHQ-9 Depression Total Score: 0 12/20/19 23 11:40 AM EDT documented as of this encounter Care Teams Fine Arts Packer Relationship Specialty Start Date End Date Caity Cardenas DO PCP - General Family Medicine 12/18/22 documented as of this encounter
--- OUTSIDE RECORDS SUMMARY | 2024-08-29 12:33 | XMS_ITS | Encounter Summary ---
Author Organization [facility] Address [address] [place] [address] Care Team Providers Care Grade Recorder Name Role Phone Caity Cardenas MD Primary Care Provider [phone] Sherlyn London DO Unavailable [phone] Caity Cardenas MD Primary Care Provider [phone] Encounter Details Date Type Department Care Team (Late st Contact Info) Description 10/19/2022 Abstract [facility] [address] [facility] [address] [place] [phone] Edwardo Cueto, DO [address] [place] [address] Social History Tobacco Use Types Packs/Day Years Used Date Smoking Tobacco: Every Day Cigarettes Smokeless Tobacco: Never Alcohol Use Standard Drinks/Week Comments Never 0 (1 standard drink = 0.6 oz [...] [facility] [address] [place] [address] Magda Cao, DPM [address] [place] [address] 11/10/2024 9:30 AM EDT Office Visit [facility] [address] [place] [address] Brian Rajan MD [address] [facility] [address] [place] [id number] 11/19/2024 9:15 AM EDT Office Visit [facility] [address] [place] [phone] Jack Correa DO [address] [place], [place] [phone] documented as of this encounter Visit Diagnoses Not on filedocumented in this encounter Care Teams Grade Recorder Relationship Specialty Start Date End Date Caity Cardenas MD PCP - General Family Medicine 10/06/22 08/27/24 Caity Cardenas MD [address] [place] [phone] PCP - General Family Medicine 08/28/24 Sherlyn London DO [address] [place] [address] Referring Physician Neurology 07/12/23 documented as of this encounter
--- OUTSIDE RECORDS SUMMARY | 2024-08-29 12:33 | XMS_ITS | Encounter Summary ---
Author [facility] Address [facility]-[id number] [address] [place] [address] Care Team Providers Care Ground Operations Supervisor Name Role Phone Caity Cardenas DO Primary Care Provider [phone] Encounter Details Date Type Department Care Team (Late st Contact Info) Description 03/06/2023 [facility] [address] [place] [address] Mena Hermosillo RN Social History Tobacco Use Types Packs/Day Years [...] to get more. Never True 02/13/2023 Comments Unknown Sex and Gender Information Value [...] documented as of this encounter Care Teams Ground Operations Supervisor Relationship Specialty Start Date End Date Caity Cardenas DO PCP - General Family Medicine 12/18/22 documented as of this encounter
--- OUTSIDE RECORDS SUMMARY | 2024-08-29 12:33 | XMS_ITS | Encounter Summary ---
Author Organization [facility] Address [facility]-[id number] [address] [place] [address] Care Team Providers Care Cocoa Bean Roaster Helper Name Role Phone Caity Cardenas DO Primary Care Provider [phone] Encounter Details Date Type Department Care Team (Late st Contact Info) Description 02/21/2024 Orders Only [facility] [place] Srinivasan Alston [address] [place] [address] Ref Prov, [place] [address] Social History Tobacco Use Types Packs/Day Years [...] Procedure Name Priority Date/Time Associated Diagnosis Comments CT CHEST WO CONT Routine 02/08/2024 2:31 PM EST documented in this encounter Results * CT chest without contrast (02/08/2024 2:31 PM EST) Anatomical Region Laterality Modality Body, Lung, Chest, Body Covera N/A C omputed Tomography us Not In System Ref Prov IMG CT ORDERABLES Final R esult documented in this encounter Visit Diagnoses Not on filedocumented in this encounter Additional Health Concerns Assessment Noted Time PHQ-9 Depression Total Score: 0 03/19/20 23 7:54 PM EST documented as of this encounter Care Teams Cocoa Bean Roaster Helper Relationship Specialty Start Date End Date Caity Cardenas DO PCP - General Family Medicine 12/18/22 documented as of this encounter
--- NOTE | 2024-08-29 12:35 | XR_ITS ---
The [address] [address] Patient Name: TENZIN Carrasco [place] MRN: [id number] date: 1940 Sex: F Assigned Patient Location: [facility] Current Patient Location: [facility] Accession/Order Number: [id number] Exam Date: 08/29/2024 13:01 Report Date: 08/29/2024 13:03 At the request of: NELLY VILLALOBOS DPClifton Procedure: XR foot LT min 3V LEFT WEIGHTBEARING FOOT - 3 views COMPARISON: None CLINICAL DATA: Pain at the third toe for the past few weeks and lump. No injury. AP, lateral and oblique views were obtained. A marker was placed at the site of clinical concern. There is osteopenia. There is no evidence of fracture or dislocation. There is slight soft tissue swelling at the third toe. No radiopaque foreign bodies are seen. XR/XR foot LT min 3V IMPRESSION: NO ACUTE BONY FINDINGS. Impression dictated by: Shanta Chaudhry M.D. 08/29/2024 1:03 PM Dictation Location: [place] [address] Electronically authenticated by: [id number] Date: 08/29/2024 13:03
== END 2024-08-29 12:19 | disposition home or self-care (01) ==
LOC: RAD 12:31
PROVIDERS: PCP Family Medicine; Visit Provider Podiatrist Foot & Ankle Surgery
DX: M79.672 Pain in left foot (principal)
CPT/HCPCS: 73630